=== PATIENT | male | born 1990 | race Caucasian/White ===

== ENCOUNTER 2017-12-08 18:37 | Emergency (ER) | payer MEDICAID, SELFPAY ==
[2017-12-08 18:38] VITALS: BP 154/68; PULSE 98; RESP 16; TEMP 36.8; O2SAT 99; BMI 47.3
--- NOTE | 2017-12-08 19:39 | ED.DCSUM_ITS ---
- ER Visit Summary Date of Service: 12/08/17 Chief Complaint: Scalp laceration History of Present Illness: The patient is a 27 M who was going into the [employer] here in [facility] when he decided to play around and attempt to enter the store via the cart entrance. He struck his forehead on the lower at that entrance. No loss of conscious. No nausea vomiting. Generalized headache. Tetanus has been within the last couple months. Physical Examination: Afebrile vital signs are stable Gen: Well-nourished well-developed Head: Normocephalic 6 cm full-thickness anterior forehead/scalp laceration no active bleeding Eyes: Perrl EOMI ENT: TMs clear no rhinorrhea moist mucous membranes Neck: Supple no lymphadenopathy no JVD nontender CVS: Regular rate rhythm no murmurs normal S1-S2 Respiratory: No distress clear to auscultation bilaterally chest nontender Abdomen: Soft nontender nondistended normal bowel sounds no masses Back: Nontender Extremity: Nontender no edema Skin: Normal color no rash Neuro: alert orientated ?3 CN II-XII intact normal strength sensation reflexes gait cerebellar Psych: Normal affect normal mood Emergency Department Course and Treatment: Wound was locally anesthetized using 1% lidocaine. Is washed with Shur-Clens and explored. It was closed using a total of 7 4-0 simple interrupted Ethilon sutures. Wound edges were well approximated. Patient tolerated procedure well. Patient will need stitches removed in 7 days. Return instructions given Impression: 1. 6 cm scalp laceration with repair This note was generated with [employer] dictation software. It may contain incorrect words, spelling, and punctuation that were not noted in review of the chart prior to signing ED Disposition - Plan for ED Patient: Disposition: Home or Assisted Living Chief Complaint: Head Injury Instructions: ED Laceration Scalp Stitch Or Stap Referrals: Care Physician,No Primary [Primary Care Provider] - Additional Instructions: follow up in 7 days for suture removal
[2017-12-08 19:56] VITALS: BP 129/77; PULSE 71; RESP 16; O2SAT 95
== END 2017-12-08 19:57 | disposition home or self-care (01) ==
PROVIDERS: Emergency Provider Emergency Medicine
DX: S01.01XA Laceration without foreign body of scalp, initial encounter (principal); W22.09XA Striking against other stationary object, initial encounter; Y93.83 Activity, rough housing and horseplay; Y92.512 Supermarket, store or market as the place of occurrence of the external cause; Y99.9 Unspecified external cause status; I10 Essential (primary) hypertension
CPT/HCPCS: 12002; 99283